=== PATIENT | male | born 1995 | race African-American/Black ===

== ENCOUNTER 2016-07-27 01:29 | Emergency (ER) | payer SELFPAY ==
[~2016-07-27] VITALS: Ht 167.6 cm; Wt 63.0 kg
[2016-07-27] MEDS ORDERED: IBUPROFEN 800MG TABLET PO ONE (04:30)
[2016-07-27 06:24] VITALS: BP 128/71
== END 2016-07-27 06:25 | disposition home or self-care (01) ==
LOC: ER 02:00
DX: S06.0X0A Concussion without loss of consciousness, initial encounter (principal); S13.9XXA Sprain of joints and ligaments of unspecified parts of neck, initial encounter; S60.212A Contusion of left wrist, initial encounter; Z98.890 Other specified postprocedural states; V43.52XA Car driver injured in collision with other type car in traffic accident, initial encounter; Y93.89 Activity, other specified; Y92.488 Other paved roadways as the place of occurrence of the external cause
CPT/HCPCS: 71010; 72040; 73110; 99284